=== PATIENT | male | born 2000 | race Two or more races ===

== ENCOUNTER 2021-07-02 08:48 | Emergency (ER) | payer MEDICAID, SELFPAY ==
--- NOTE | ~2021-07-02 | XR_ITS ---
EXAMINATION: XR ANKLE, RIGHT CLINICAL INFORMATION: Right ankle pain status post twisting injury. COMPARISON: None TECHNIQUE: AP, lateral, and mortise views of the right ankle. FINDINGS: Mild asymmetric soft tissue swelling is seen laterally. The underlying lateral malleolus appears intact. There is no acute fracture or dislocation. The tarsal bones are normally aligned. XR/XR ankle RT 2V IMPRESSION: Mild asymmetric soft tissue swelling laterally without acute underlying osseous abnormality.
[2021-07-02 09:00] VITALS: BP 153/93; PULSE 89; RESP 16; TEMP 36.1; O2SAT 98; BMI 24.3
--- NOTE | 2021-07-02 09:15 | ED.LOWEXIN ---
HPI - Extremity Injury (Lower) General Chief Complaint: Extremity Injury, Lower Stated Complaint: r foot inj Time Seen by Provider: 07/02/21 09:06 Source: patient and family Mode of arrival: wheelchair Limitations: no limitations History of Present Illness HPI Narrative: 21-year-old male with a history of asthma here with right ankle pain after an injury which occurred yesterday. Patient tells me he missed a step causing his foot to curl underneath him. Since then he has had pain in his ankle which is worsened with weight-bearing. No numbness, tingling, swelling, redness, warmth, fevers or chills. Related Data Previous Rx's Medication Instructions Recorded ibuprofen 600 mg tablet 600 mg PO TID PRN #30 tab 07/02/21 Allergies Allergy/AdvReac Type Severity Reaction Status Date / Time No Known Allergies Allergy Unverified 11/01/19 16:44 [No Known Allergies*] Review of Systems Review of Systems: Yes all other systems are reviewed and are negative Constitutional: Constitutional: Reports no additional constitutional complaints, Denies body ache(s), Denies chills, Denies fever(s), Denies headache(s) and Denies weakness Eyes: Eyes: Reports no additional eye complaints and Denies change in vision ENT: Reports system reviewed and no additional complaints, except as documented, Denies dizziness, Denies headache(s), Denies nasal congestion, Denies nasal discharge and Denies neck pain Cardiovascular: Cardiovascular: Reports no additional cardiovascular complaints, Denies chest pain, Denies leg edema and Denies dyspnea Respiratory: Respiratory: Reports no additional respiratory complaints, Denies cough and Denies dyspnea Gastrointestinal: Gastrointestinal: Reports no additional gastrointestinal complaints, Denies abdominal pain, Denies diarrhea, Denies nausea and Denies vomiting Genitourinary: Genitourinary: Denies urinary incontinence Musculoskeletal: Musculoskeletal: Reports no additional musculoskeletal complaints, Denies back pain, Reports arthralgias, Reports joint swelling, Denies neck pain, Denies numbness and Denies tingling Integumentary/Breasts: Skin/Breast: Reports system reviewed and no additional complaints, except as docu and Denies rash Neurologic: Reports system reviewed and no additional complaints, except as documented, Denies Abnormal speech present, Denies dizziness, Denies headache(s), Denies numbness, Denies tingling and Denies weakness PMFSH Past Medical History Attestation statement: The following information was validated with the patient. Source: old records reviewed and nursing notes reviewed Social History Social History Advance Directives: No Advance Directives Information Provided: No Physical Exam Vital Signs: Vital Signs: Last Vital Signs Temp 97 F 07/02/21 09:00 Pulse 89 07/02/21 09:00 Resp 16 07/02/21 09:00 BP 153/93 H 07/02/21 09:00 Pulse Ox 98 07/02/21 09:00 BMI result Body Mass Index 24.3 Const: General: cooperative, healthy appearing, comfortable and no acute distress Orientation/consciousness: patient oriented x3 Limitations: no limitations HEENT: Head: Yes normal to inspection Ears: hearing grossly normal bilaterally General nose exam: Normal external nose present Face and sinus: Yes normal facial exam Mouth: Normal oral and palatal mucosa present Throat: Yes posterior oropharynx normal Eyes: General: appearance normal, both eyes and all related structures Pupils: Equal, round and reactive pupils present Neck: Neck: Yes normal visual inspection Chest: Chest palpation & inspection: normal inspection of the chest Resp: Effort & Inspection: normal respiratory effort Auscultation: clear to auscultation bilaterally Cardio: Rate: regular rate Rhythm: regular rhythm Peripheral pulses: Peripheral pulses 2+ throughout GI: Inspection: Yes normal to inspection Palpation (GI): Soft to palpation and nontender Auscultation: normal bowel sounds Back/Spine/Pelvis: Thoracic/Lumbar Spine: thoracic and lumbar spine normal to inspection Skin: General skin exam: no rashes or lesions noted Neuro: General: patient oriented x3, no focal motor deficits and normal sensation to monofilament Cranial nerves: Yes Equal, round and reactive pupils present Cognition (Neuro): normal cognition Speech: No Abnormal speech present Gait exam (Neuro): Normal gait present Motor exam (neuro): 5/5 motor strength present throughout Extrem: Other: To the lateral right ankle there is tenderness. There is no swelling or deformity noted. There is full range of motion the foot and ankle with no difficulty. Palpable dorsalis pedis and PT pulses. Sensation is intact General: Yes normal to inspection Course Course Course Narrative: 21-year-old male here with right ankle pain after an injury yesterday. Will check x-rays Reevaluation(s) Reevaluation #1: x-rays show no acute abnormality. Likely sprain. Reviewed RICE. Reviewed worrisome signs and symptoms of when to return to the emergency department. Comfortable discharge home. Time: 09:34 MDM - Extremity Injury (Lower) MDM Narrative Medical decision making narrative: Sprain, contusion, fracture Medical Records Attestation: I reviewed the patient's medical records. Lab Data Attestation: I reviewed the patient's lab results. Imaging Data ankle xray: Attestation: I personally reviewed and interpreted this imaging study as follows: Radiologist's impression: Launch?Image [address] [address] XRay Report Signed Patient: Kory Craft MR#: [id number] : 2000 Acct:[id number] Age/Sex: 21 / M ADM Date: 07/02/21 Loc: HO.ED Attending Dr: Ordering Physician: Generic ED Physician Date of Service: 07/02/21 Procedure(s): XR ankle RT 2V Accession Number(s): [id number] cc: Generic ED Physician~ EXAMINATION: XR ANKLE, RIGHT CLINICAL INFORMATION: Right ankle pain status post twisting injury.? COMPARISON: None? TECHNIQUE: AP, lateral, and mortise views of the right ankle. FINDINGS: Mild asymmetric soft tissue swelling is seen laterally. The underlying lateral malleolus appears intact. There is no acute fracture or dislocation. The tarsal bones are normally aligned. XR/XR ankle RT 2V IMPRESSION: Mild asymmetric soft tissue swelling laterally without acute underlying osseous abnormality. Procedures Procedure Narrative Procedure Narrative: gasper wrap, crutches Discharge Plan Discharge Clinical Impression: Ankle sprain and strain Patient Disposition: Home, Self-Care Additional Instructions: Ice to the area 20 minutes on 20 minutes off Use the Aircast and crutches and limit weight-bearing until able to bear weight without experiencing pain Motrin as needed for pain See your primary care doctor in 7 days for persistent symptoms Prescriptions: New ibuprofen 600 mg tablet 600 mg PO TID PRN (Reason: pain) Qty: 30 0RF Referrals: Physician,None [Primary Care Provider] - 1 week (For persistent symptoms) Interventions: ED Discharge Assessment Last Done: 07/02/21 09:47 Discharge Date/Time: 07/02/21 09:48
== END 2021-07-02 09:48 | disposition home or self-care (01) ==
PROVIDERS: Emergency Provider Emergency Medicine
DX: S93.402A Sprain of unspecified ligament of left ankle, initial encounter (principal); S93.401A Sprain of unspecified ligament of right ankle, initial encounter; X58.XXXA Exposure to other specified factors, initial encounter; Y93.9 Activity, unspecified; Y92.9 Unspecified place or not applicable; Y99.9 Unspecified external cause status
CPT/HCPCS: 29515; 73600; 99282; 99283

== ENCOUNTER 2021-09-04 00:31 | Emergency (ER) | payer MEDICAID, SELFPAY ==
[2021-09-04 00:40] VITALS: BP 135/84; PULSE 102; RESP 20; TEMP 38.3; O2SAT 94; BMI 24.0
[2021-09-04 00:42] VITALS: BP 145/85; PULSE 112; TEMP 37.9; O2SAT 97
--- NOTE | 2021-09-04 00:48 | ED.GENADULT ---
HPI - General Adult General Chief complaint: Fever Stated complaint: fever, back pain Time Seen by Provider: 09/04/21 00:47 Source: patient Mode of arrival: ambulatory Limitations: no limitations History of Present Illness HPI narrative: Patient complaining of body aches fever since morning on arrival temperature was 101 degrees no nausea no vomiting no diarrhea no abdominal pain no cough or shortness of breath patient has not been vaccinated against COVID complaining of low back pain whole body aches no IV drug use Related Data Previous Rx's Medication Instructions Recorded ibuprofen 600 mg tablet 600 mg PO TID PRN pain #30 tabs 07/02/21 albuterol sulfate 90 mcg/actuation 2 puff inhalation Q4-6H PRN 09/04/21 aerosol inhaler (ProAir HFA) Wheezing #8.5 grams dexamethasone 6 mg tablet 6 mg PO DAILY #7 tabs 09/04/21 (Decadron) ibuprofen 600 mg tablet 600 mg PO Q6H PRN pain #30 tabs 09/04/21 Allergies Allergy/AdvReac Type Severity Reaction Status Date / Time No Known Allergies Allergy Verified 09/04/21 00:40 [No Known Allergies*] Review of Systems Review of Systems: Yes all other systems are reviewed and are negative [facility] Social History Social History Advance Directives: No Advance Directives Information Provided: No Physical Exam ED Vital Signs: Vital Signs - 24 hr 09/04/21 00:40 09/04/21 00:42 Temperature 101 F H 100.3 F Pulse Rate 102 H 112 H Respiratory Rate 20 Blood Pressure 135/84 145/85 H Pulse Oximetry 94 97 Oxygen Delivery Method Room Air Room Air BMI result Body Mass Index 24.0 Appearance: Alert. Oriented X3. No acute distress. ENT: Pharynx normal. Oral Mucosa moist Neck: Normal inspection. Neck supple. CVS: Normal heart rate and rhythm. Pulses normal. Respiratory: No respiratory distress. Equal air entry bilateral, no wheezing/rales/rhonchi Abdomen: Soft and nontender. Bowel sounds are present, no mass palpable, no CVA tenderness Skin: Skin warm and dry. Normal skin color. Normal skin turgor. Extremities: No lower extremity edema. No calf tenderness Neuro: Oriented X 3. Medical Decision Making Lab Data Labs: Lab Results 09/04/21 Range/Units 00:52 COVID-19 ([facility]) Positive A (Negative) COVID-19 Clin Com See Note Discharge Plan Discharge Clinical Impression: COVID-19 Patient Disposition: Home, Self-Care Instructions: COVID-19 (Coronavirus Disease 2019) (ED) Additional Instructions: Social distancing as advised Tylenol/Motrin for fever and body aches Decadron as prescribed Prescriptions: New dexamethasone [Decadron] 6 mg tablet 6 mg PO DAILY Qty: 7 0RF ibuprofen 600 mg tablet 600 mg PO Q6H PRN (Reason: pain) Qty: 30 0RF albuterol sulfate [ProAir HFA] 90 mcg/actuation HFA aerosol inhaler 2 puff inhalation Q4-6H PRN (Reason: Wheezing) Qty: 8.5 0RF No Action ibuprofen 600 mg tablet 600 mg PO TID PRN (Reason: pain) Qty: 30 0RF
[2021-09-04 01:13] LABS: COVID-19 Test Positive (Negative)
[2021-09-04] MEDS: Acetaminophen 325 MG TABLET 650 MG PO (01:18)
== END 2021-09-04 01:40 | disposition home or self-care (01) ==
PROVIDERS: Emergency Provider Internal Medicine
DX: U07.1 COVID-19 (principal); R50.9 Fever, unspecified
CPT/HCPCS: 87635; 99283

== ENCOUNTER 2023-08-23 01:03 | Emergency (ER) | payer MEDICARE, MEDICAID, SELFPAY ==
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
[2023-08-23 01:19] VITALS: BP 128/84; PULSE 77; RESP 16; TEMP 37.1; O2SAT 97; BMI 26.8
[2023-08-23 06:12] VITALS: BP 131/80; PULSE 64; RESP 18; TEMP 36.4; O2SAT 98
--- NOTE | 2023-08-23 07:04 | PC.NURSE ---
This RN assumes care of Pt at shift change. Pt is awake and sitting in room chair. A&Ox3 Noted lac to L side of nose, dried blood present. Deviation of nasal bridge noted. Per shift report Pt is awaiting xray.
[2023-08-23 07:23] VITALS: BP 143/96; PULSE 73; RESP 14; TEMP 36.5; O2SAT 97
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
[2023-08-23] MEDS: Diphth,Pertus(ACell),Tet Adult 0.5 ML SYRINGE IM (08:32)
[2023-08-23 08:35] VITALS: BP 120/69; PULSE 56; RESP 18; TEMP 36.5; O2SAT 98
[2023-08-23] MEDS: cephALEXin 500 MG CAPSULE PO (09:56)
[2023-08-23 09:59] VITALS: BP 124/86; PULSE 68; RESP 16; TEMP -17.7; TEMP 0; O2SAT 99
== END 2023-08-23 10:00 | disposition home or self-care (01) ==
PROVIDERS: Emergency Provider Emergency Medicine
DX: S02.2XXA Fracture of nasal bones, initial encounter for closed fracture (principal); Y00.XXXA Assault by blunt object, initial encounter; Y93.9 Activity, unspecified; Y92.9 Unspecified place or not applicable; Y99.9 Unspecified external cause status; Z23 Encounter for immunization
CPT/HCPCS: 70160; 90471; 90715; 99284

== ENCOUNTER 2023-12-09 08:57 | Outpatient (AMB) | payer MEDICARE, MEDICAID, SELFPAY ==
[2023-12-09 09:08] VITALS: BP 140/90; PULSE 71; O2SAT 98; BMI 27.5
--- NOTE | 2023-12-09 09:08 | AM.OFFWIN_ITS ---
Intake Vital Signs 3 12/09/23 09:08 Height 5 ft 8 in Weight 181 lb BMI 27.5 BP 140/90 H Blood Pressure Location Lt brachial Position Sitting Pulse 71 Pulse Source Pulse Oximeter Pulse Oximetry (%) 98 Oxygen Delivery Method Room Air Intake Visit Reasons: [employer]-swollen, dry, cracks lips Intake Note: Patient here for swollen, dry and cracked lips which has been present for about 3 days. Patient Tobacco Use Status: Current someday Tobacco user Allergies No Known Allergies [No Known Allergies*] Allergy (Verified 12/09/23 09:10) Do you need a note to return to daycare/school/sports/work: No HPI HPI Comments 2 History of Present Illness0 Details Patient is a 23-year-old male complaining of dry cracked blister a lips for the past 3 days. He tells me he has been using Carmex but they are little bit painful and he is not sure if there is anything else he should be doing for them. He has never had this happen before. [facility] Social History Patient Tobacco Use Status: Current someday Tobacco user Substance Use Type: Marijuana Review of Systems Const All systems reviewed & are unremarkable except as noted in HPI and below Physical Exam Vital Signs: Last Vital Signs Pulse 71 12/09/23 09:08 BP 140/90 H 12/09/23 09:08 Pulse Ox 98 12/09/23 09:08 Oxygen Delivery Method Room Air 12/09/23 09:08 BMI result Body Mass Index 27.5 Const General: cooperative, healthy appearing, comfortable, no acute distress and well developed Orientation/consciousness: patient oriented x3 Limitations: no limitations HEENT Head: Yes normal to inspection Nose image: 2 1. small yellowish vesicle 2. small yellowish vesicle 3. small yellowish vesicle 4. small yellowish vesicle Mouth: lip abnormal (dry) Neck Neck: Yes normal visual inspection and Yes supple Neuro General: patient oriented x3 Assessment & Plan Assessment & Plan (1) Cold sore: Code(s): B00.1 - Herpesviral vesicular dermatitis Plan: Sent valacyclovir with 1 refill, educated patient on cold sores Plan See above Medications: New 2 valacyclovir 2,000 mg (2 x 1 gram) PO ONCE 2 tabs 1RF Discontinued 2 albuterol sulfate 90 mcg/actuation (ProAir HFA) Discontinued Reason: Patient no longer taking 2 puffs inhalation Q4-6H PRN 8.5 grams 0RF Wheezing dexamethasone (Decadron) Discontinued Reason: Patient no longer taking 6 mg PO DAILY 7 tabs 0RF ibuprofen Discontinued Reason: Duplicate 600 mg PO Q6H PRN 30 tabs 0RF pain cephalexin Discontinued Reason: Patient Completed Course 500 mg PO Q6H 20 caps 0RF Coding Level of Care Code New Pt Level 3 (48376) Diagnoses Cold sore B00.1
== END 2023-12-09 10:13 | disposition home or self-care (01) ==
PROVIDERS: Visit Provider Physician Assistant
DX: B00.1 Herpesviral vesicular dermatitis (principal)

== ENCOUNTER → 2023-12-09 08:57 | Outpatient (BNVA) | payer MEDICARE, MEDICAID, SELFPAY | DX: B00.1 Herpesviral vesicular dermatitis (principal) | CPT/HCPCS: 99202 ==